=== PATIENT | female | born 1990 | race Caucasian/White ===

== ENCOUNTER 2019-02-25 23:06 | Emergency (ER) | payer MEDICAID ==
[~2019-02-25] VITALS: Ht 172.7 cm; Wt 68.2 kg
[~2019-02-25 23:06] MED LIST: ALPR-624 PO; LEVE500T PO; PHEN100C12 PO; PHEN100C4 PO
[2019-02-26] MEDS ORDERED: phenytoin sod ER 100mg capsule PO ONE (00:15)
[2019-02-26] MEDS ORDERED: PHEN100C4 PO (00:34)
[2019-02-26 00:49] VITALS: BP 138/83
== END 2019-02-26 00:45 | disposition home or self-care (01) ==
LOC: ER 23:07
DX: R56.9 Unspecified convulsions (principal); F12.90 Cannabis use, unspecified, uncomplicated; Z90.49 Acquired absence of other specified parts of digestive tract; Z59.0 Homelessness; Z56.0 Unemployment, unspecified; Z88.6 Allergy status to analgesic agent; Z79.899 Other long term (current) drug therapy
CPT/HCPCS: 99283

== ENCOUNTER 2019-12-24 14:28 | Emergency (ER) | payer MEDICAID ==
[~2019-12-24] VITALS: Ht 172.7 cm; Wt 66.4 kg
[2019-12-24 14:50] VITALS: BP 118/78
[2019-12-24] MEDS ORDERED: PHEN100C4 PO (15:47)
== END 2019-12-24 16:00 | disposition home or self-care (01) ==
LOC: ER 14:28
DX: R56.9 Unspecified convulsions (principal); Z76.0 Encounter for issue of repeat prescription; F12.90 Cannabis use, unspecified, uncomplicated; Z90.49 Acquired absence of other specified parts of digestive tract; Z59.0 Homelessness; Z56.0 Unemployment, unspecified; Z88.8 Allergy status to other drugs, medicaments and biological substances; Z79.899 Other long term (current) drug therapy
CPT/HCPCS: 99281